=== PATIENT | female | born 1995 | race Two or more races ===

== ENCOUNTER 2025-01-27 09:06 | Emergency (ER) | payer MEDICAID ==
[~2025-01-27] VITALS: Ht 152.4 cm; Wt 117.9 kg
[2025-01-27 09:08] VITALS: BP 155/99; TEMP 98.6
[2025-01-27] MEDS ORDERED: dexaMETHasone SOD PHOSPHATE 1 ML ONE (09:31)
[2025-01-27] MEDS: dexaMETHasone SOD PHOSPHATE 4 MG/ML VIAL IM ONE (09:37)
[2025-01-27 09:52] VITALS: O2SAT 98
[2025-01-27] MEDS ORDERED: LORA10TA7 PO (09:52)
== END 2025-01-27 09:57 | disposition home or self-care (01) ==
LOC: ER 09:14
DX: L50.9 Urticaria, unspecified (principal)
CPT/HCPCS: 99283; 96372; J1100